=== PATIENT | male | born 1945 | race Caucasian/White ===

== ENCOUNTER → 2017-05-16 | Day surgery (SDC) | payer MEDICARE, OTHER ==
[~2017-05-16] MED LIST: ACET-704 PO; ALBU8.5H6 IH; ASPI-630 PO; ATEN50TA PO; ATOR40TA PO; ESOM40CA PO; FLUO20CA16 PO; GLIP5TAB10 PO; GUAI12003 PO; HYOS0.1265 SL; LEVO112T2 PO; LUBI24CA7 PO; METF100010 PO; NAPR500T3 PO; POLY17PO29 PO; PROPOFOL 20 ML IV ONE; TEST60GE TD; TRAZ50TA15 PO; VALA500T5 PO; VALS1TAB8 PO
--- NOTE | 2017-05-16 12:41 | PDOC1 ---
History and Physical Date of Admission Date of Admission DATE: 05/16/17 TIME: 12:30 Source Source: Chart review, Patient History of Present Illness History of Present Illness 71 y/o male with recent epigastric/RUQ pain. Usually worse in AM and pc. H/o PUD; taking PPI daily, but also NSAID. Prior madhav. Reflux esophagitis on old EGD. No liver or pancreatic disease. Diverticulosis on prior colonoscopy (2012 ). Past Medical History Cardiovascular: CAD, HTN, [place], Hyperlipidemia Endocrine: Diabetes, Hypothyroidism Past Surgical History Past Surgical History: Pacemaker, Cholecystectomy, Cataract Removal, Tonsillectomy, Other (thyroidectomy, Left knee scope, "eye surgery", TURP, laparotomy with adhesiolysis) Family History Family History: Coronary Artery Disease Social History Smoke: No ALCOHOL: none Drugs: None Current Medications Current Medications Active Scripts Active Reported Diovan Hct 160-12.5 Mg Tab (Valsartan/Hydrochlorothiazide) 1 Each Tablet 1 Each PO DAILY Metformin Hcl Er (Metformin Hcl) 1,000 Mg Tab.er.24 1,000 Mg PO BID Prozac (Fluoxetine Hcl) 20 Mg Capsule 20 Mg PO TID Nexium (Esomeprazole Magnesium) 40 Mg Capsule.dr 40 Mg PO DAILY Lipitor (Atorvastatin Calcium) 40 Mg Tablet 40 Mg PO DAILY Atenolol 50 Mg Tablet 50 Mg PO Albuterol Sulfate Hfa (Albuterol Sulfate) 8.5 Gm Hfa.aer.ad 8.5 Gm IH PRN Tylenol With Codeine #3 Tablet (Acetaminophen With Codeine) 1 Each Tablet 1 Each PO 1X Miralax (Polyethylene Glycol 3350) 17 Gm Powd.pack 17 Gm PO Aspirin 81 Mg Tab.chew 81 Mg PO DAILY Valtrex (Valacyclovir Hcl) 500 Mg Tablet 500 Mg PO PRN Mucinex (Guaifenesin) 1,200 Mg Tbmp.12hr 1,200 Mg PO Synthroid (Levothyroxine Sodium) 112 Mcg Tablet 112 Mcg PO DAILY Glipizide 5 Mg Tablet 2.5 Mg PO Fortesta (Testosterone) 60 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 Physical Exam General: Alert, Oriented X3, Cooperative, No acute distress Lungs: Clear to auscultation Heart: S1S2, RRR, no gallops, no murmurs Abdomen: Normal bowel sounds, Soft, No tenderness (mild RUQ, LQ's), No hepatosplenomegaly, No masses Rectal Exam: not examined Extremities: No cyanosis, No edema Skin: No significant lesion Neuro: Normal gait, Normal speech, Strength at 5/5 X4 ext, Normal tone, Sensation intact, Cranial nerves 3-12 NL, Reflexes 2+ Psych/Mental Status: Mental status NL, Mood NL VTE Prophylaxis Ordered VTE Prophylaxis Devices: No VTE Pharmacological Prophylaxi: No Assessment/Plan Assessment/Plan IMP: RUQ pain, post-madhav. Plan: EGD. NANCY JORDAN MD May 16, 2017 12:41
--- NOTE | 2017-05-16 13:08 | PDOC4 ---
PROCEDURE Procedure EGD Indication: RUQ pain, s/p madhav, dyspeptic Meds: per anesthesia Findings: E--healed reflux at 40cm. NO FAGAN's. G--Deformed pylorus c/w prior ulcer. D--Normal to second portion. Gildardo. well. IMP: Reflux esophagitis, healed, but likely still symptomatic. Pyloric deformity c/w history of prior ulcer. REC: Continue PPI, but take in AM with better timing. F/u in 3-4 weeks. Resume meds, diet as before. NANCY JORDAN MD May 16, 2017 13:08
[2017-05-16 13:23] VITALS: BP 141/63
== END | disposition home or self-care (01) ==
LOC: SURG 12:25
PROVIDERS: ATTEND Internal Medicine Gastroenterology
DX: K21.0 Gastro-esophageal reflux disease with esophagitis (principal); K31.89 Other diseases of stomach and duodenum; E78.00 Pure hypercholesterolemia, unspecified; I10 Essential (primary) hypertension; J45.909 Unspecified asthma, uncomplicated; K21.9 Gastro-esophageal reflux disease without esophagitis; M19.90 Unspecified osteoarthritis, unspecified site; E03.9 Hypothyroidism, unspecified; F41.9 Anxiety disorder, unspecified; F17.200 Nicotine dependence, unspecified, uncomplicated; Z90.49 Acquired absence of other specified parts of digestive tract; Z87.442 Personal history of urinary calculi; Z87.39 Personal history of other diseases of the musculoskeletal system and connective tissue; Z86.39 Personal history of other endocrine, nutritional and metabolic disease; Z72.89 Other problems related to lifestyle; Z88.8 Allergy status to other drugs, medicaments and biological substances; Z91.041 Radiographic dye allergy status
CPT/HCPCS: 43235; J2704